=== PATIENT | female | born 1965 | race Caucasian/White ===

== ENCOUNTER 2025-02-09 19:42 | Emergency (ER) | payer OTHER ==
[~2025-02-09] VITALS: Ht 167.6 cm; Wt 49.9 kg
[2025-02-09] MEDS ORDERED: Lidocaine 4% 1 Patch TOP ONE ×2 (20:30→22:45)
[2025-02-09] MEDS ORDERED: RX Prepack 6 Tabs Oxycodone 5mg UD ONE (22:45)
== END 2025-02-09 22:55 | disposition home or self-care (01) ==
LOC: ER 19:42
DX: R07.81 Pleurodynia (principal)
CPT/HCPCS: 71046; 99283-25; A9270